=== PATIENT | female | born 1940 | race Hispanic/Latino ===

== ENCOUNTER 2020-05-19 08:10 | Day surgery (SDC) | payer MEDICARE ==
[2020-05-19 09:48] LABS: Basophils % (Auto) 0.6 % (0.0-1.8); Eosinophils # (Auto) 0.1 K/mm3 (0.0-0.4); Eosinophils % (Auto) 1.5 % (0.0-4.3); Hematocrit 39.3 % (30.3-42.9); Hemoglobin 13.5 gm/dl (10.1-14.3); Lymphocytes # (Auto) 1.3 K/mm3 (1.2-5.4); Lymphocytes % (Auto) 30.3 % (13.4-35.0); Mean Corpuscular HGB Conc 35 % (30-34); Mean Corpuscular Volume 96 fl (79-97); Monocytes # (Auto) 0.5 K/mm3 (0.0-0.8); Monocytes % (Auto) 10.9 % (0.0-7.3); Platelet Count 235 K/mm3 (140-440); Red Blood Count 4.11 M/mm3 (3.65-5.03); Red Cell Distribution Width 14.4 % (13.2-15.2)
[2020-05-19 09:59] LABS: INR 0.92 (0.87-1.13)
[2020-05-19] MEDS ORDERED: SODIUM CHLORIDE 0.9% 500 ML 500 ML IV SCH (10:00)
[2020-05-19 10:01] LABS: Blood Urea Nitrogen 13 mg/dL (7-17); Calcium 9.8 mg/dL (8.4-10.2); Hemolysis Index 17
[2020-05-19 10:05] LABS: BUN/Creatinine Ratio 19
[2020-05-19] MEDS ORDERED: fentaNYL 100 MCG/2 ML INJ ONE ×2 (10:19→11:13)
[2020-05-19] MEDS ORDERED: HEPARIN/NS 5000 UNIT/500ML 1,000 ML IR ONE (10:19)
[2020-05-19] MEDS: MIDAZOLAM 2 MG/2 ML INJ ONE ×2 (11:06→13:07)
[2020-05-19] MEDS: LIDOCAINE (2%) 20 MG/1 ML VIAL 20 ML MDV INFILTRATI ONE ×2 (13:27→13:36)
[2020-05-19] MEDS: VERAPAMIL 5 MG/2 ML INJ ONE ×2 (13:28→13:37)
[2020-05-19] MEDS: HEPARIN 10,000 UNITS/10 ML VIAL ONE ×2 (13:28→13:37)
[2020-05-19] MEDS: NITROGLYCERIN SYRINGE 3 ML ONE ×2 (13:29→13:37)
[2020-05-19] MEDS ORDERED: MIDAZOLAM 2 MG/2 ML INJ ONE (13:39)
[2020-05-19] MEDS ORDERED: SODIUM CHLORIDE 0.9% 1000 ML 1,000 ML IV SCH (14:00)
--- NOTE | 2020-05-19 14:00 | Discharge Summary ---
Short Stay Discharge Plan Activity: advance as tolerated Weight Bearing Status: Full Weight Bearing Diet: low fat, low cholesterol, low salt Wound: keep clean and dry Special Instructions: no heavy lifting (3 days) Follow up with: TATA HIGGINBOTHAM MD [Primary Care Provider] - 7 Days MACY HANEY MD [Staff Physician] - 7 Days
[2020-05-19] MEDS ORDERED: traMADol 50 MG TAB PO PRN (14:30)
[2020-05-19] MEDS ORDERED: HYDROcodone/ACETAMINOPHEN 5-325 MG TAB PO PRN (14:30)
--- NOTE | 2020-05-19 14:39 | Cardiac Catherization Report ---
CARDIAC CATHETERIZATION REPORT REASON FOR PROCEDURE: Chest pain and abnormal thallium stress test. PROCEDURE: The patient was prepped and draped in a sterile fashion after informed consent. The right radial cath site was prepped and draped after a negative Andrei's test. The right radial artery was entered using Seldinger technique followed by placement of a 6-Maltese hydrophilic sheath. Routine radial cocktail was administered via the sheath. Selective left and right coronary angiography was performed using #3.5 left Nicolas, and a #4 right Nicolas. The right Nicolas was used for left ventricular angiography. The catheters were then removed, sheath removed, and hemostasis achieved using a TR band. The patient was returned to the postprocedure unit in stable condition. FINDINGS: HEMODYNAMICS: Left ventricular end-diastolic pressure was 25, following coronary angiography. Ascending aortic pressure 170/74. There was no significant pressure gradient on pullback across the aortic valve. CORONARY ANGIOGRAPHY: The left main coronary artery was free of significant disease. A stent was visible in the proximal left anterior descending artery. The stented segment was patent, but contained diffuse, in-stent restenosis, with up to 30-40% luminal narrowing. Following the stented segment, a medium to large mid diagonal branch of the LAD contained an ostial, 50-60% stenosis. Otherwise, the rest of the LAD and diagonal branches contained mild irregularities. A large ramus intermedius artery contained mild luminal irregularities. The circumflex artery and its obtuse marginal branches contained mild luminal irregularities. The right coronary artery was dominant and also contained mild luminal irregularities. Left ventricular systolic function was at lower limits of normal with estimated ejection fraction of 50%. CONCLUSION: 1. Mild diffuse in-stent restenosis of the proximal LAD stent. 2. Moderate severity ostial stenosis of the mid diagonal branch of the LAD. 3. Otherwise, the rest of the coronary segments appear free of significant atherosclerosis. 4. Left ventricular systolic function at the lower limits of normal, ejection fraction 50%. RECOMMENDATION: Risk factor modification and medical therapy. JOB# [id number] CA/NTS
[2020-05-19 16:10] VITALS: BP 123/61
== END 2020-05-19 17:10 | disposition home or self-care (01) ==
LOC: CATHLABREC 08:10
PROVIDERS: ATTEND Internal Medicine Cardiovascular Disease
DX: R07.89 Other chest pain (principal); R93.49 Abnormal radiologic findings on diagnostic imaging of other urinary organs; T82.855A Stenosis of coronary artery stent, initial encounter; I25.10 Atherosclerotic heart disease of native coronary artery without angina pectoris; F17.210 Nicotine dependence, cigarettes, uncomplicated; M19.90 Unspecified osteoarthritis, unspecified site; J44.9 Chronic obstructive pulmonary disease, unspecified; F32.9 Major depressive disorder, single episode, unspecified; I10 Essential (primary) hypertension; E78.5 Hyperlipidemia, unspecified; E66.9 Obesity, unspecified; K21.9 Gastro-esophageal reflux disease without esophagitis; E03.9 Hypothyroidism, unspecified; Z88.0 Allergy status to penicillin; Z88.5 Allergy status to narcotic agent; Z79.899 Other long term (current) drug therapy; Z79.82 Long term (current) use of aspirin; Z72.89 Other problems related to lifestyle; Z98.49 Cataract extraction status, unspecified eye; Z68.34 Body mass index [BMI] 34.0-34.9, adult; Z98.890 Other specified postprocedural states; Z96.653 Presence of artificial knee joint, bilateral; Y83.8 Other surgical procedures as the cause of abnormal reaction of the patient, or of later complication, without mention of misadventure at the time of the procedure; Y92.89 Other specified places as the place of occurrence of the external cause
CPT/HCPCS: 36415; 80048; 85025; 85610; 93005; 93458; 99156; 99157; C1894; J1644; J2250; J3010; J7040; Q9967

== ENCOUNTER 2020-10-20 11:23 | Observation (INO) | payer MEDICARE ==
--- NOTE | 2020-10-20 11:44 | Event Note ---
ED Screening Note ED Screening Note: substernal CP that began 4 days ago while in her sleep she states it radiated to her bilateral jaws she states the sharp pain lasted 20 minutes she states she continues to have soreness of the chest she denies any diaphoresis, n/v she states she does have some SOB she also has dizziness PMHx IL and arthritis allergy: codeine, penicillin This initial assessment/diagnostic orders/clinical plan/treatment(s) is/are subject to change based on patients health status, clinical progression and re-assessment by fellow clinical providers in the ED. Further treatment and workup at subsequent clinical providers discretion. Patient/guardian urged not to elope from the ED as their condition may be serious if not clinically assessed and managed. Initial orders include: CP protocol
--- NOTE | 2020-10-20 12:36 | XRay Report ---
CHEST 2 VIEWS INDICATION / CLINICAL INFORMATION: Chest Pain. COMPARISON: None available. FINDINGS: SUPPORT DEVICES: None. HEART / MEDIASTINUM: No significant abnormality. LUNGS / PLEURA: Mild diffuse interstitial markings which are likely chronic. No convincing evidence o f acute pulmonary parenchymal or pleural abnormality. No pneumothorax. ADDITIONAL FINDINGS: No significant additional findings. IMPRESSION: 1. No convincing evidence of acute cardiopulmonary process. Signer Name: Yoni Sheehan MD Signed: 10/20/2020 12:17 PM Workstation Name: [id number]
[2020-10-20 12:47] LABS: Basophils % (Auto) 0.8 % (0.0-1.8); Eosinophils % (Auto) 1.3 % (0.0-4.3); Hematocrit 39.1 % (30.3-42.9); Hemoglobin 13.1 gm/dl (10.1-14.3); Lymphocytes # (Auto) 0.8 K/mm3 (1.2-5.4); Lymphocytes % (Auto) 21.5 % (13.4-35.0); Mean Corpuscular HGB Conc 33 % (30-34); Mean Corpuscular Volume 94 fl (79-97); Monocytes # (Auto) 0.4 K/mm3 (0.0-0.8); Monocytes % (Auto) 9.7 % (0.0-7.3); Platelet Count 278 K/mm3 (140-440); Red Blood Count 4.14 M/mm3 (3.65-5.03); Red Cell Distribution Width 16.8 % (13.2-15.2)
[2020-10-20 12:56] LABS: INR 0.96 (0.87-1.13)
[2020-10-20 12:57] LABS: Partial Thromboplastin Time 26.1 Sec. (24.2-36.6)
[2020-10-20 13:08] LABS: Albumin 3.7 g/dL (3.9-5); Blood Urea Nitrogen 11 mg/dL (7-17); Calcium 9.7 mg/dL (8.4-10.2); Hemolysis Index 7
[2020-10-20 13:14] LABS: Alanine Aminotransferase < 5 units/L (7-56); BUN/Creatinine Ratio 16
[2020-10-20 13:35] LABS: Chol/HDL Ratio 4.45 %; HDL Cholesterol 66 mg/dL (40-59); LDL Cholesterol,Direct 214 mg/dL (50-130)
[2020-10-20] MEDS ORDERED: ASPIRIN 81 MG TAB CHEW PO ONE ×2 (13:54)
[2020-10-20] MEDS ORDERED: NITROGLYCERIN 0.4 MG TAB SUBL SL PRN (13:54)
--- NOTE | 2020-10-20 13:55 | Emergency Department Report ---
ED Chest Pain HPI - General Chief Complaint: Chest Pain Stated Complaint: CHEST PAIN PUI?: No Time Seen by Provider: 10/20/20 11:38 Source: patient, RN notes reviewed, old records reviewed Mode of arrival: Ambulatory Limitations: No Limitations - History of Present Illness Initial Comments: The patient was evaluated in the emergency department for symptoms described in the history of present illness. He/she was evaluated in the context of the global COVID-19 pandemic, which necessitated consideration that the patient might be at risk for infection with the virus that causes COVID-19. Institutional protocols and algorithms that pertain to the evaluation of patients at risk for COVID-19 are in a state of rapid change based on information released by regulatory bodies including the CDC and federal and state organizations. These policies and algorithms were followed during the patient's care in the emergency department. Please note that these policies, procedures and recommendations changed on a rapid basis. Primary CARE doctor: Dr Leoncio Walsh Cardiology: Dr Amador/ [facility] Past medical history: Ischemic heart disease, stent. Patient had cardiac catheterization at this hospital May 2020, cardiac catheterization found stents to be visible in proximal LAD, with in-stent restenosis, up to 30 to 40% luminal narrowing. Also, has a medium to large mid diagonal branch of the LAD which contained an ostial 50 to 60% stenosis. Otherwise, remainder of LAD and diagonal branches contains mild luminal irregularities. Ejection fraction 50%. Additional past medical history: Hypertension, hypothyroidism This is a pleasant 79-year-old female. She is not known to myself previously. She presents to the ER with a complaint of mostly resolved chest pressure and pain. Her symptoms started this past Monday. It is currently Monday. She describes nontraumatic central and right-sided chest discomfort, which radiated to her right jaw and right shoulder. She still has pressure, but feels improved. She denies additional injuries or complaints at this time. She denies loss of taste and smell. She denies DVT and pulmonary embolism risk factors. She denies hematemesis and bright red blood per rectum. She endorses intermittent compliance with her aspirin therapy. To the best of her knowledge, she does not take Plavix. Complaint: chest pain -: Sudden, days(s) Onset: during rest Pain Location: substernal, right chest Pain Radiation: RUE, neck Severity: moderate Quality: aching Consistency: now resolved Improves With: nothing Worsens With: nothing re: nausea, dyspnea Aspirin use within the Past 7 Days: (1) Yes - Related Data On Oral Contraceptives: No Home Medications Medication Instructions Recorded Confirmed Last Taken Aspirin EC [Halfprin EC] 162 mg PO QDAY 05/19/20 05/19/20 05/19/20 Benazepril HCl [Lotensin] 20 mg PO DAILY 05/19/20 05/19/20 05/19/20 Duloxetine HCl [Drizalma Sprinkle] 60 mg PO DAILY 05/19/20 05/19/20 05/19/20 Famotidine [Pepcid] 20 mg PO BID 05/19/20 05/19/20 05/19/20 ISOSORBIDE MONOnitrate [Imdur ER] 30 mg PO DAILY 05/19/20 05/19/20 05/19/20 Levothyroxine [Synthroid] 125 mcg PO QAM 05/19/20 05/19/20 05/19/20 Metoprolol [Lopressor TAB] 25 mg PO BID 05/19/20 05/19/20 05/19/20 Rosuvastatin Calcium [Crestor] 10 mg PO DAILY 05/19/20 05/19/20 05/19/20 Allergies Allergy/AdvReac Type Severity Reaction Status Date / Time codeine Allergy Vomiting Verified 05/19/20 09:20 Penicillins Allergy Anaphylaxis Verified 05/19/20 09:20 Heart Score - HEART Score History: Moderately suspicious EKG: Non-specific Age: > 65 Risk factors: > 3 risk factors or hx of atherosclerotic disease Troponin: 1-3x normal limit HEART Score: 7 - EKG Read Time Time EKG Completed: 11:35 EKG Read Time: 11:40 - Critical Actions Critical Actions: >7 pts:50-65% risk of adverse cardiac event. Early invasive measures ED Review of Systems ROS: Stated complaint: CHEST PAIN Other details as noted in HPI Constitutional: other (Denies loss of taste and smell). denies: fever Eyes: denies: eye discharge ENT: denies: epistaxis Respiratory: denies: cough, wheezing Cardiovascular: chest pain Gastrointestinal: denies: nausea, vomiting, diarrhea, melena, hematochezia Genitourinary: denies: dysuria Musculoskeletal: denies: back pain Neurological: weakness Hematological/Lymphatic: denies: easy bleeding ED Past Medical Hx - Past Medical History Hx Hypertension: Yes Hx Heart Attack/AMI: Yes Hx GERD: Yes Hx Arthritis: Yes Hx COPD: Yes Additional medical history: heart stents - Surgical History Additional Surgical History: GR, paulay, "1/2 of my upper intestines", feet - Social History Smoking Status: Current Every Day Smoker - Medications Home Medications: Home Medications Medication Instructions Recorded Confirmed Last Taken Type Aspirin EC [Halfprin EC] 162 mg PO QDAY 05/19/20 05/19/20 05/19/20 History Benazepril HCl [Lotensin] 20 mg PO DAILY 05/19/20 05/19/20 05/19/20 History Duloxetine HCl [Drizalma Sprinkle] 60 mg PO DAILY 05/19/20 05/19/20 05/19/20 History Famotidine [Pepcid] 20 mg PO BID 05/19/20 05/19/20 05/19/20 History ISOSORBIDE MONOnitrate [Imdur ER] 30 mg PO DAILY 05/19/20 05/19/20 05/19/20 History Levothyroxine [Synthroid] 125 mcg PO QAM 05/19/20 05/19/20 05/19/20 History Metoprolol [Lopressor TAB] 25 mg PO BID 05/19/20 05/19/20 05/19/20 History Rosuvastatin Calcium [Crestor] 10 mg PO DAILY 05/19/20 05/19/20 05/19/20 History ED Physical Exam - General Limitations: No Limitations General appearance: alert, in no apparent distress - Head Head exam: Present: atraumatic, normocephalic - Eye Eye exam: Present: normal appearance, EOMI. Absent: nystagmus - ENT ENT exam: Present: normal exam, normal orophraynx, mucous membranes moist, normal external ear exam - Neck Neck exam: Present: normal inspection, full ROM. Absent: tenderness, meningismus - Respiratory Respiratory exam: Present: normal lung sounds bilaterally. Absent: respiratory distress, wheezes, rales, rhonchi, stridor, decreased breath sounds - Cardiovascular Cardiovascular Exam: Present: regular rate, normal rhythm, normal heart sounds. Absent: bradycardia, tachycardia, irregular rhythm, systolic murmur, diastolic murmur, rubs, gallop - GI/Abdominal GI/Abdominal exam: Present: soft, normal bowel sounds. Absent: distended, tenderness, guarding, rebound, rigid, pulsatile mass - Extremities Exam Extremities exam: Present: normal inspection, full ROM, other (2+ pulses noted in the bilateral upper and lower extremities. There is no palpable cord. negative Homans sign. Muscular compartments are soft. The pelvis is stable.). Absent: pedal edema, calf tenderness - Back Exam Back exam: Present: normal inspection, full ROM. Absent: tenderness, CVA tenderness (R), CVA tenderness (L), paraspinal tenderness, vertebral tenderness - Neurological Exam Neurological exam: Present: alert, other (No facial droop. Tongue midline. Extraocular movements intact bilaterally. Facial sensation intact to light touch in V1, V2, V3 distribution bilaterally. 5 and a 5 strength in 4 extremities. Sensation intact to light touch in 4 extremities.) - Psychiatric Psychiatric exam: Present: normal affect, normal mood - Skin Skin exam: Present: warm, dry, intact, normal color. Absent: rash ED Course Vital Signs 10/20/20 10/20/20 11:27 14:15 Temperature 97.6 F Pulse Rate 79 Respiratory 22 Rate Blood Pressure 143/75 O2 Sat by Pulse 96 Oximetry O2 Sat by Pulse 99 Oximetry [ Digit-Finger] - Consultations Consultation #1: 10/20/20 14:20 As per discussion with cardiology on-call, Shannan Krishnamurthy, in agreement with admission, heparinization, aspirin, Imdur 30 daily, no need for Plavix at this time, and reinitiation of home medications. - Pulse Oximetry Interpretation Digit-Finger Initial Pulse Oximetry Readin O2 Sat by Pulse Oximetry: 99 Actions Taken: none ENMANUEL score - Enamnuel Score Age > 65: (1) Yes Aspirin use within the Past 7 Days: (1) Yes 3 or more CAD Risk Factors: (1) Yes 2 or more Angina events in past 24 hrs: (0) No Known CAD with more than 50% Stenosis: (1) Yes Elevated Cardiac Markers: (1) Yes ST Deviation Greater than 0.5mm: (0) No ENMANUEL Score: 5 ED Medical Decision Making - Lab Data Result diagrams: 10/20/20 12:20 10/20/20 12:20 Vital Signs 10/20/20 11:27 Temperature 97.6 F Pulse Rate 79 Respiratory 22 Rate Blood Pressure 143/75 O2 Sat by Pulse 96 Oximetry Lab Results 10/20/20 10/20/20 10/20/20 Range/Units 12:20 12:20 12:20 WBC 3.9 L (4.5-11.0) K/mm3 RBC 4.14 (3.65-5.03) M/mm3 Hgb 13.1 (10.1-14.3) gm/dl Hct 39.1 (30.3-42.9) % MCV 94 (79-97) fl MCH 32 (28-32) pg MCHC 33 (30-34) % RDW 16.8 H (13.2-15.2) % Plt Count 278 (140-440) K/mm3 Lymph % (Auto) 21.5 (13.4-35.0) % [place] % (Auto) 9.7 H (0.0-7.3) % Eos % (Auto) 1.3 (0.0-4.3) % Baso % (Auto) 0.8 (0.0-1.8) % Lymph # (Auto) 0.8 L (1.2-5.4) K/mm3 [place] # (Auto) 0.4 (0.0-0.8) K/mm3 Eos # (Auto) 0.0 (0.0-0.4) K/mm3 Baso # (Auto) 0.0 (0.0-0.1) K/mm3 Seg Neutrophils % 66.7 (40.0-70.0) % Seg Neutrophils # 2.6 (1.8-7.7) K/mm3 PT 12.7 (12.2-14.9) Sec. INR 0.96 (0.87-1.13) APTT 26.1 (24.2-36.6) Sec. Sodium 139 (137-145) mmol/L Potassium 5.5 H (3.6-5.0) mmol/L Chloride 101.6 (98-107) mmol/L Carbon Dioxide 27 (22-30) mmol/L Anion Gap 16 mmol/L BUN 11 (7-17) mg/dL Creatinine 0.7 (0.6-1.2) mg/dL Estimated GFR > 60 ml/min BUN/Creatinine Ratio 16 % Glucose 112 H (65-100) mg/dL Calcium 9.7 (8.4-10.2) mg/dL Magnesium 2.20 (1.7-2.3) mg/dL Total Bilirubin 0.50 (0.1-1.2) mg/dL AST 19 (5-40) units/L ALT < 5 L (7-56) units/L Alkaline Phosphatase 97 (35-129) units/L Total Creatine Kinase 108 (30-135) units/L Troponin T 0.208 H* (0.00-0.029) ng/mL Total Protein 7.8 (6.3-8.2) g/dL Albumin 3.7 L (3.9-5) g/dL Albumin/Globulin Ratio 0.9 % Triglycerides 126 (2-149) mg/dL Cholesterol 294 H (50-199) mg/dL LDL Cholesterol Direct 214 H (50-130) mg/dL HDL Cholesterol 66 H (40-59) mg/dL Cholesterol/HDL Ratio 4.45 % - EKG Data -: EKG Interpreted by Ut - EKG Data 10/20/20 14:12 EKG today shows a known left bundle branch block, with a left axis deviation. There is a borderline left anterior fascicular block, and there is poor R wave progression. The QTC is prolonged. CT interval within normal limits. This is an abnormal EKG. This is not a STEMI. This appears to be unchanged from prior EKG from May 2020. - Radiology Data Radiology results: pending, report reviewed, image reviewed CHEST 2 VIEWS INDICATION / CLINICAL INFORMATION: Chest Pain. COMPARISON: None available. FINDINGS: SUPPORT DEVICES: None. HEART / MEDIASTINUM: No significant abnormality. LUNGS / PLEURA: Mild diffuse interstitial markings which are likely chronic. No convincing evidence of acute pulmonary parenchymal or pleural abnormality. No pneumothorax. ADDITIONAL FINDINGS: No significant additional findings. IMPRESSION: 1. No convincing evidence of acute cardiopulmonary process. Signer Name: Yoni Sheehan MD Signed: 10/20/2020 11:17 AM Workstation Name: [id number] - Medical Decision Making Differential diagnosis, including but not limited to: GERD, gastritis, hiatal hernia, pneumonia, acute coronary syndrome, stable angina, unstable angina Assessment and plan: 79-year-old female, denies DVT and pulmonary embolism risk factors, who is not currently tachycardic, tachypneic or hypoxic, low risk by Wells criteria for pulmonary embolism, with no pulsatile abdominal mass, unremarkable mediastinum on chest x-ray, equal pulses in upper and lower extremities, unlikely to be acute aortic disease, with known history of ischemic heart disease, in-stent restenosis, elevated risk for major adverse cardiac event as per heart score, with unchanged EKG, and elevated troponin. Suspect type I troponin leak. Patient states she is basically pain-free at this time. She is resting comfortably in her stretcher and in no acute distress. She took 81 mg of aspirin this morning, we will give additional dose of aspirin for total dose of 324 mg today. Heparin drip ordered, as needed nitroglycerin ordered, patient is amenable to admission and hospitalization for presumed NSTEMI. Contacted cardiology on-call, Shannan Krishnamurthy, she has reviewed the patient's chart, is in agreement with heparinization, and nothing by mouth after midnight. She will further reviewed patient's chart, and make further recommendations as to additional antiplatelet agents. Patient admitted to the medical service under the care of Dr. Hough. Have discussed this plan of care with the patient, who verbalized understanding, and was amenable to admission. Critical Care Time: Yes Critical care time in (mins) excluding proc time.: 35 Critical care attestation.: If time is entered above; I have spent that time in minutes in the direct care of this critically ill patient, excluding procedure time. ED Disposition Clinical Impression: CAD (coronary artery disease), Acute chest pain, NSTEMI (non-ST elevated myocardial infarction) Disposition: OP ADMIT IP TO THIS HOSP Is pt being admited?: Yes Does the pt Need Aspirin: No Condition: Good Instructions: Chest Pain (ED)
[2020-10-20] MEDS ORDERED: HEPARIN 10,000 UNITS/10 ML VIAL IV PRN (14:06)
[2020-10-20] MEDS ORDERED: HEPARIN 10,000 UNITS/10 ML VIAL IV ONE (14:06)
[2020-10-20] MEDS ORDERED: ONDANSETRON 4 MG/2 ML INJ IV PRN (14:25)
[2020-10-20] MEDS ORDERED: ACETAMINOPHEN 325 MG TAB PO PRN (14:25)
[2020-10-20] MEDS ORDERED: ALBUTEROL 2.5 MG/3 ML NEBU IH PRN (14:25)
--- NOTE | 2020-10-20 14:25 | History and Physical Report ---
History of Present Illness Chief complaint: My chest hurts History of present illness: 79 YO Female with CAD S/P Stent Placement, Obesity Hypoventilation Syndrome, HTN, Hypothyroidism, Nicotine Dependence, GERD, HLD, [place], OA, COPD presents to ED for evaluation. Patient reports "I have been having pain in my chest". Patient states that she has experienced chest pain over the past 3 days with acutely worsening symptoms over the past 12 hours. Patient states that pain is 7/10, intermittent initially but has become constant, worsened with exertion, relieved with rest, associated with decreased exercise tolerance, dyspnea on exertion as well as dyspnea at rest. Patient transported to [facility] via private vehicle for further care and evaluation of the aforementioned symptoms. The patient was seen and evaluated in the emergency department. All lab and imaging studies reviewed. Patient found to have EKG findings as well as clinical lab findings consistent with non-ST elevation [place], as well as clinical symptoms consistent with diastolic congestive heart failure. Cardiology team consulted in ED. Patient admitted to telemetry and initiated on therapeutic anticoagulation. Patient denies fever, chills, palpitations, productive cough, skin rash, recent ill contacts, or known exposure to COVID-19. Past History Past Medical History: acute [place], arthritis, COPD, GERD, hypertension, hyperlipidemia Past Surgical History: appendectomy, bowel surgery, Other (Foot surgery) Social history: , smoking Family history: diabetes, hypertension Medications and Allergies Allergies Allergy/AdvReac Type Severity Reaction Status Date / Time codeine Allergy Vomiting Verified 05/19/20 09:20 Penicillins Allergy Anaphylaxis Verified 05/19/20 09:20 Home Medications Medication Instructions Recorded Confirmed Last Taken Type Aspirin EC [Halfprin EC] 162 mg PO QDAY 05/19/20 10/20/20 05/19/20 History Benazepril HCl [Lotensin] 20 mg PO DAILY 05/19/20 10/20/20 05/19/20 History Duloxetine HCl [Drizalma Sprinkle] 60 mg PO DAILY 05/19/20 10/20/20 05/19/20 History Famotidine [Pepcid] 20 mg PO BID 05/19/20 10/20/20 05/19/20 History ISOSORBIDE MONOnitrate [Imdur ER] 30 mg PO DAILY 05/19/20 10/20/20 05/19/20 Hi story Levothyroxine [Synthroid] 125 mcg PO QAM 05/19/20 10/20/20 05/19/20 History Metoprolol [Lopressor TAB] 25 mg PO BID 05/19/20 10/20/20 05/19/20 History Rosuvastatin Calcium [Crestor] 10 mg PO DAILY 05/19/20 10/20/20 05/19/20 History Active Meds: Active Medications Heparin Sodium (Porcine) (Heparin 10,000 Units/10 Ml Vial) 3,400 unit 40 unit/kg (3400 unit) IV Q6H PRN PRN Reason: Anti-Xa Assay < 0.1 units/ml Heparin Sodium/Sodium Chloride (Heparin/ 0.45% Nacl-25,000 Unit/500 Ml) 25,000 unit in 500 mls @ 20 mls/hr IV TITRATE AIDAN; Protocol Isosorbide Mononitrate (Isosorbide Mononitrate Er 30 Mg Tab) 30 mg PO NOW STA Stop: 10/20/20 14:19 Nitroglycerin (Nitroglycerin 0.4 Mg Tab Subl) 0.4 mg SL .Q5MIN PRN PRN Reason: Chest Pain Review of Systems Constitutional: no weight loss, no weight gain, no fever, no chills Ears, nose, mouth and throat: no ear pain, no ear discharge, no tinnitis, no decreased hearing, no nose pain, no nasal congestion, no nasal discharge Breasts: no change in shape, no swelling, no mass Cardiovascular: chest pain, decreased exercise tolerance, no rapid/irregular heart beat, no edema, no lightheadedness Respiratory: no cough, no cough with sputum, no excessive sputum, no hemoptysis Gastrointestinal: no nausea, no vomiting, no diarrhea, no constipation, no change in bowel habits Genitourinary Female: no pelvic pain, no flank pain, no dysuria, no urinary frequency, no urgency Rectal: no pain, no incontinence, no bleeding Musculoskeletal: no neck stiffness, no neck pain, no arm numbness/tingling, no low back pain, no shooting leg pain Integumentary: no rash, no pruritis, no sores, no jaundice, no boils Neurological: no transient paralysis, no paralysis, no parathesias, no numbness, no seizures, no syncope Psychiatric: no anxiety, no memory loss, no change in sleep habits, no sleep disturbances, no insomnia, no hypersomnia, no change in libido Endocrine: no cold intolerance, no heat intolerance, no polyphagia, no polydipsia, no polyuria, no excessive sweating Hematologic/Lymphatic: no easy bruising, no easy bleeding Allergic/Immunologic: no urticaria, no wheezing Exam - Constitutional Vitals: Temp Pulse Resp BP Pulse Ox 97.6 F 79 22 143/75 99 10/20/20 11:27 10/20/20 11:27 10/20/20 11:10/20/20 11:10/20/20 14:21 General appearance: Present: mild distress, obese - EENT Eyes: Present: PERRL ENT: hearing intact, clear oral mucosa - Neck Neck: Present: supple, normal ROM - Respiratory Respiratory effort: normal Respiratory: bilateral: CTA - Cardiovascular Heart Sounds: Present: S1 & S2. Absent: rub, click - Extremities Extremities: pulses symmetrical, No edema Peripheral Pulses: within normal limits - Abdominal General gastrointestinal: Present: soft, non-tender, non-distended, normal bowel sounds Female genitourinary: Present: normal - Integumentary Integumentary: Present: clear, warm, dry - Musculoskeletal Musculoskeletal: gait normal, strength equal bilaterally - Psychiatric Psychiatric: appropriate mood/affect, intact judgment & insight - Neurologic Neurologic: CNII-XII intact, moves all extremities HEART Score - HEART Score EKG: Non-specific Age: > 65 Risk factors: > 3 risk factors or hx of atherosclerotic disease Troponin: Troponin T 0.208 ng/mL (0.00-0.029) H* 10/20/20 12:20 Troponin: 1-3x normal limit - Critical Actions Critical Actions: >7 pts:50-65% risk of adverse cardiac event. Early invasive measures Results - Labs CBC & Chem 7: 10/20/20 12:20 10/20/20 12:20 Labs: Abnormal lab results 10/20/20 10/20/20 Range/Units 12:20 12:20 WBC 3.9 L (4.5-11.0) K/mm3 RDW 16.8 H (13.2-15.2) % [place] % (Auto) 9.7 H (0.0-7.3) % Lymph # (Auto) 0.8 L (1.2-5.4) K/mm3 Potassium 5.5 H (3.6-5.0) mmol/L Glucose 112 H (65-100) mg/dL ALT < 5 L (7-56) units/L Troponin T 0.208 H* (0.00-0.029) ng/mL Albumin 3.7 L (3.9-5) g/dL Cholesterol 294 H (50-199) mg/dL LDL Cholesterol Direct 214 H (50-130) mg/dL HDL Cholesterol 66 H (40-59) mg/dL Assessment and Plan - Patient Problems (1) NSTEMI (non-ST elevated myocardial infarction) Current Visit: Yes Status: Acute Plan to address problem: Serial cardiac enzymes, EKG, telemetry monitoring, therapeutic anticoagulation, supplemental oxygen, morphine, nitro, aspirin, further care and evaluation as per cardiology team. (2) Angina at rest Current Visit: Yes Status: Acute Plan to address problem: Serial cardiac enzymes, EKG, telemetry monitoring, further care and evaluation as per cardiology team. (3) Diastolic CHF Current Visit: Yes Status: Acute Qualifiers: Heart failure chronicity: acute Qualified Code(s): I50.31 - Acute diastolic (congestive) heart failure Plan to address problem: Cardiology team consulted in ED, echocardiogram, further testing as per cardiology team. Strict I's/O, monitor urine output every shift, daily weight, afterload reduction, (4) GERD (gastroesophageal reflux disease) Current Visit: Yes Status: Acute Qualifiers: Esophagitis presence: without esophagitis Qualified Code(s): K21.9 - Gastro-esophageal reflux disease without esophagitis Plan to address problem: PPI therapy, supportive care. (5) Obesity (BMI 30.0-34.9) Current Visit: Yes Status: Acute Plan to address problem: Balanced diet, increase physical activity at discharge, outpatient pulmonary follow-up for sleep study. (6) CAD (coronary artery disease) Current Visit: Yes Status: Acute Qualifiers: Associated angina: with stable angina Plan to address problem: Risk factor reduction therapy, statin therapy, antiplatelet therapy. (7) DVT prophylaxis Current Visit: Yes Status: Acute Plan to address problem: SCD to bilateral lower extremities while in bed, continue therapeutic anti coagulation (8) Advance care planning Current Visit: Yes Status: Acute Plan to address problem: Disease education conducted, care plan discussed, prognosis discussed, diagnoses discussed, patient is full code, patient knowledges understanding and agreement with care plan, +30 minutes.
[2020-10-20] MEDS: HEPARIN/ 0.45% NACL DRIP 25,000 UNIT/500 ML BAG IV SCH ×2 (14:58→23:33)
[2020-10-20] MEDS ORDERED: ONDANSETRON 4 MG/2 ML INJ ONE (15:02)
[2020-10-20] MEDS: FAMOTIDINE 20 MG TAB PO SCH (22:23)
[2020-10-20] MEDS ORDERED: TEMAZEPAM 15 MG CAP PO ONE (22:23)
[2020-10-20] MEDS: METOPROLOL TARTRATE 25 MG TAB PO SCH (22:26)
[2020-10-21] MEDS ORDERED: LEVOTHYROXINE 125 MCG TAB PO SCH (06:00)
[2020-10-21 06:58] LABS: Basophils % (Auto) 0.7 % (0.0-1.8); Eosinophils # (Auto) 0.1 K/mm3 (0.0-0.4); Eosinophils % (Auto) 1.7 % (0.0-4.3); Hematocrit 34.6 % (30.3-42.9); Hemoglobin 11.4 gm/dl (10.1-14.3); Lymphocytes # (Auto) 1.5 K/mm3 (1.2-5.4); Lymphocytes % (Auto) 32.9 % (13.4-35.0); Mean Corpuscular HGB Conc 33 % (30-34); Mean Corpuscular Volume 94 fl (79-97); Monocytes # (Auto) 0.4 K/mm3 (0.0-0.8); Monocytes % (Auto) 9.3 % (0.0-7.3); Platelet Count 270 K/mm3 (140-440); Red Blood Count 3.67 M/mm3 (3.65-5.03); Red Cell Distribution Width 16.6 % (13.2-15.2)
[2020-10-21 07:25] LABS: Alanine Aminotransferase 6 units/L (7-56); Albumin 3.5 g/dL (3.9-5); BUN/Creatinine Ratio 14; Blood Urea Nitrogen 11 mg/dL (7-17); Calcium 9.2 mg/dL (8.4-10.2); Hemolysis Index 5
[2020-10-21] MEDS ORDERED: REGADENOSON 0.4 MG/5 ML INJ IV ONE (08:37)
[2020-10-21] MEDS ORDERED: DULoxetine 30 MG CAP PO SCH (10:00)
[2020-10-21] MEDS ORDERED: LISINOPRIL 20 MG TAB PO SCH (10:00)
[2020-10-21] MEDS ORDERED: BENAZEPRIL HCL 20 MG PO SCH (10:00)
[2020-10-21] MEDS ORDERED: NON-FORMULARY EACH (Duloxetine Hcl [Drizalma Sprinkle] 60 MG Cap.Dr.Spr) PO SCH (10:00)
[2020-10-21] MEDS ORDERED: NON-FORMULARY EACH (Rosuvastatin Calcium [Crestor] 10 MG Tablet) PO SCH (10:00)
[2020-10-21] MEDS ORDERED: ASPIRIN EC 81 MG TAB PO SCH (10:00)
[2020-10-21] MEDS: FAMOTIDINE 20 MG TAB PO SCH (10:50)
[2020-10-21] MEDS: METOPROLOL TARTRATE 25 MG TAB PO SCH (10:50)
--- NOTE | 2020-10-21 11:54 | Progress Note ---
Assessment and Plan Assessment and plan: 79 YO Female with CAD S/P Stent Placement, Obesity Hypoventilation Syndrome, HTN, Hypothyroidism, Nicotine Dependence, GERD, HLD, [place], OA, COPD presents to ED for evaluation. Patient reports "I have been having pain in my chest". Patient states that she has experienced chest pain over the past 3 days with acutely worsening symptoms over the past 12 hours. Patient states that pain is 7/10, intermittent initially but has become constant, worsened with exertion, relieved with rest, associated with decreased exercise tolerance, dyspnea on exertion as well as dyspnea at rest. Patient transported to [facility] via private vehicle for further care and evaluation of the aforementioned symptoms. The patient was seen and evaluated in the emergency department. All lab and imaging studies reviewed. Patient found to have EKG findings as well as clinical lab findings consistent with non-ST elevation [place], as well as clinical symptoms consistent with diastolic congestive heart failure. Cardiology team consulted in ED. Patient admitted to telemetry and initiated on therapeutic anticoagulation. Patient denies fever, chills, palpitations, productive cough, skin rash, recent ill contacts, or known exposure to COVID-19. (1) NSTEMI (non-ST elevated myocardial infarction) Current Visit: Yes Status: Acute Plan to address problem: Serial cardiac enzymes, EKG, telemetry monitoring, therapeutic anticoagulation, supplemental oxygen, morphine, nitro, aspirin, further care and evaluation as per cardiology team. (2) Angina at rest Current Visit: Yes Status: Acute Plan to address problem: Serial cardiac enzymes, EKG, telemetry monitoring, further care and evaluation as per cardiology team. (3) Diastolic CHF Current Visit: Yes Status: Acute Qualifiers: Heart failure chronicity: acute Qualified Code(s): I50.31 - Acute diastolic (congestive) heart failure Plan to address problem: Cardiology team consulted in ED, echocardiogram, further testing as per cardiol ogy team. Strict I's/O, monitor urine output every shift, daily weight, afterload reduction, (4) GERD (gastroesophageal reflux disease) Current Visit: Yes Status: Acute Qualifiers: Esophagitis presence: without esophagitis Qualified Code(s): K21.9 - Gastro-esophageal reflux disease without esophagitis Plan to address problem: PPI therapy, supportive care. (5) Obesity (BMI 30.0-34.9) Current Visit: Yes Status: Acute Plan to address problem: Balanced diet, increase physical activity at discharge, outpatient pulmonary follow-up for sleep study. (6) CAD (coronary artery disease) Current Visit: Yes Status: Acute Qualifiers: Associated angina: with stable angina Plan to address problem: Risk factor reduction therapy, statin therapy, antiplatelet therapy. (7) DVT prophylaxis Current Visit: Yes Status: Acute Plan to address problem: SCD to bilateral lower extremities while in bed, continue therapeutic anticoagulation (8) Advance care planning Current Visit: Yes Status: Acute Plan to address problem: Disease education conducted, care plan discussed, prognosis discussed, diagnoses discussed, patient is full code, patient knowledges understanding and agreement with care plan, +30 minutes. Hospitalist Physical - Constitutional Vitals: Temp Pulse Resp BP Pulse Ox 98.4 F 73 18 170/86 92 10/21/20 04:15 10/21/20 10:50 10/21/20 07:57 10/21/20 10:50 10/21/20 07:57 General appearance: Present: mild distress, obese HEART Score - HEART Score EKG: Non-specific Age: > 65 Risk factors: > 3 risk factors or hx of atherosclerotic disease Troponin: Troponin T 0.202 ng/mL (0.00-0.029) H* 10/20/20 16:33 Troponin: 1-3x normal limit - Critical Actions Critical Actions: >7 pts:50-65% risk of adverse cardiac event. Early invasive measures Results - Labs CBC & Chem 7: 10/21/20 04:45 10/21/20 04:45 Labs: Laboratory Last Values WBC 4.6 K/mm3 (4.5-11.0) 10/21/20 04:45 RBC 3.67 M/mm3 (3.65-5.03) 10/21/20 04:45 Hgb 11.4 gm/dl (10.1-14.3) 10/21/20 04:45 Hct 34.6 % (30.3-42.9) 10/21/20 04:45 MCV 94 fl (79-97) 10/21/20 04:45 MCH 31 pg (28-32) 10/21/20 04:45 MCHC 33 % (30-34) 10/21/20 04:45 RDW 16.6 % (13.2-15.2) H 10/21/20 04:45 Plt Count 270 K/mm3 (140-440) 10/21/20 04:45 Lymph % (Auto) 32.9 % (13.4-35.0) 10/21/20 04:45 [place] % (Auto) 9.3 % (0.0-7.3) H 10/21/20 04:45 Eos % (Auto) 1.7 % (0.0-4.3) 10/21/20 04:45 Baso % (Auto) 0.7 % (0.0-1.8) 10/21/20 04:45 Lymph # (Auto) 1.5 K/mm3 (1.2-5.4) 10/21/20 04:45 [place] # (Auto) 0.4 K/mm3 (0.0-0.8) 10/21/20 04:45 Eos # (Auto) 0.1 K/mm3 (0.0-0.4) 10/21/20 04:45 Baso # (Auto) 0.0 K/mm3 (0.0-0.1) 10/21/20 04:45 Seg Neutrophils % 55.4 % (40.0-70.0) 10/21/20 04:45 Seg Neutrophils # 2.5 K/mm3 (1.8-7.7) 10/21/20 04:45 PT 12.7 Sec. (12.2-14.9) 10/20/20 12:20 INR 0.96 (0.87-1.13) 10/20/20 12:20 APTT 26.1 Sec. (24.2-36.6) 10/20/20 12:20 Heparin Anti-Xa Level 0.31 U.I./ml (0.3-0.7) 10/20/20 20:52 Sodium 141 mmol/L (137-145) 10/21/20 04:45 Potassium 4.2 mmol/L (3.6-5.0) D 10/21/20 04:45 Chloride 103.3 mmol/L (98-107) 10/21/20 04:45 Carbon Dioxide 28 mmol/L (22-30) 10/21/20 04:45 Anion Gap 14 mmol/L 10/21/20 04:45 BUN 11 mg/dL (7-17) 10/21/20 04:45 Creatinine 0.8 mg/dL (0.6-1.2) 10/21/20 04:45 Estimated GFR > 60 ml/min 10/21/20 04:45 BUN/Creatinine Ratio 14 % 10/21/20 04:45 Glucose 81 mg/dL (65-100) 10/21/20 04:45 Calcium 9.2 mg/dL (8.4-10.2) 10/21/20 04:45 Magnesium 2.20 mg/dL (1.7-2.3) 10/20/20 12:20 Total Bilirubin 0.50 mg/dL (0.1-1.2) 10/21/20 04:45 AST 20 units/L (5-40) 10/21/20 04:45 ALT 6 units/L (7-56) L 10/21/20 04:45 Alkaline Phosphatase 80 units/L (35-129) 10/21/20 04:45 Total Creatine Kinase 108 units/L (30-135) 10/20/20 12:20 Troponin T 0.202 ng/mL (0.00-0.029) H* 10/20/20 16:33 Total Protein 7.0 g/dL (6.3-8.2) 10/21/20 04:45 Albumin 3.5 g/dL (3.9-5) L 10/21/20 04:45 Albumin/Globulin Ratio 1.0 % 10/21/20 04:45 Triglycerides 126 mg/dL (2-149) 10/20/20 12:20 Cholesterol 294 mg/dL (50-199) H 10/20/20 12:20 LDL Cholesterol Direct 214 mg/dL (50-130) H 10/20/20 12:20 HDL Cholesterol 66 mg/dL (40-59) H 10/20/20 12:20 Cholesterol/HDL Ratio 4.45 % 10/20/20 12:20 [place]/IV: Voiding Method Toilet Active Medications - Current Medications Current Medications: Generic Name Dose Route Start Last Admin Trade Name Freq PRN Reason Stop Dose Admin Acetaminophen 650 mg 10/20/20 14:25 Acetaminophen 325 Mg Tab PO Q4H PRN Pain MILD(1-3)/Fever >100.5/WALLACE Albuterol 2.5 mg 10/20/20 14:25 Albuterol 2.5 Mg/3 Ml Nebu IH Q4HRT PRN Shortness Of Breath Aspirin 162 mg 10/21/20 10:00 10/21/20 10:49 Aspirin Ec 81 Mg Tab PO 162 mg QDAY AIDAN Administration Atorvastatin Calcium 20 mg 10/20/20 22:00 10/20/20 22:25 Atorvastatin 20 Mg Tab PO 20 mg QHS AIDAN Administration Duloxetine HCl 60 mg 10/21/20 10:00 10/21/20 10:50 Duloxetine 30 Mg Cap PO 60 mg QDAY AIDAN Administration Famotidine 20 mg 10/20/20 22:00 10/21/20 10:50 Famotidine 20 Mg Tab PO 20 mg BID AIDAN Administration Heparin Sodium (Porcine) 3,400 unit 10/20/20 14:06 Heparin 10,000 Units/10 Ml Vial 40 unit/kg (3400 unit) IV Q6H PRN Anti-Xa Assay < 0.1 units/ml Heparin Sodium/Sodium Chloride 25,000 unit in 500 mls @ 20 mls/hr 10/20/20 15:00 10/20/20 23:33 Heparin/ 0.45% Nacl-25,000 Unit/500 Ml IV 1,000 units/hr TITRATE AIDAN 20 mls/hr Administration Protocol 1,000 UNITS/HR Isosorbide Mononitrate 30 mg 10/21/20 10:00 10/21/20 10:50 Isosorbide Mononitrate Er 30 Mg Tab PO 30 mg DAILY AIDAN Administration Levothyroxine Sodium 125 mcg 10/21/20 06:00 10/21/20 06:43 Levothyroxine 125 Mcg Tab PO 125 mcg 0600 AIDAN Administration Lisinopril 20 mg 10/21/20 10:00 10/21/20 10:50 Lisinopril 20 Mg Tab PO 20 mg QDAY AIDAN Administration Metoprolol Tartrate 25 mg 10/20/20 22:00 10/21/20 10:50 Metoprolol Tartrate 25 Mg Tab PO 25 mg BID AIDAN Administration Nitroglycerin 0.4 mg 10/20/20 13:54 Nitroglycerin 0.4 Mg Tab Subl SL .Q5MIN PRN Chest Pain Ondansetron HCl 4 mg 10/20/20 14:25 10/20/20 15:03 Ondansetron 4 Mg/2 Ml Inj IV 4 mg Q8H PRN Administration Nausea And Vomiting Sodium Chloride 10 ml 10/20/20 22:00 10/21/20 10:51 Sodium Chloride 0.9% 10 Ml Flush Syringe IV 10 ml BID AIDAN Administration Sodium Chloride 10 ml 10/20/20 14:25 Sodium Chloride 0.9% 10 Ml Flush Syringe IV PRN PRN LINE FLUSH
--- NOTE | 2020-10-21 12:54 | Consultation ---
History of Present Illness Consult date: 10/21/20 Consult reason: chest pain History of present illness: The patient is a 79-year-old woman with COPD, chronic tobacco abuse, and mauricio nary artery disease. Just 4 months ago, a cardiac catheterization at this hospital for further assessment of her coronary disease found patent mid LAD stent with only mild restenosis, and moderate stenosis at the ostium of a small caliber mid diagonal branch of the LAD. The coronary vessels were otherwise unremarkable, left ventricular ejection fraction was 50% and she was recommended for conservative medical management. She presents to the emergency room currently with chest pain which she describes as somewhat positional, located the left side of the chest. Notably, the pain was not exertional, she states that she has been ambulatory in the last few days including walking up and down stairs, has had no exercise limitations or chest pain with exercise. EKG in the hospital here is in sinus rhythm with a chronic left bundle branch block. Laboratory values done show a mildly elevated troponin of 0.2, unchanged on 2 serial measurements. Patient was ordered for a Lexiscan thallium stress test today, the results are pending. Past History Past Medical History: arthritis, CAD, COPD, GERD, hypertension, hyperlipidemia Past Surgical History: appendectomy, PTCA, bowel surgery, Other (Foot surgery) Social history: , smoking Family history: diabetes, hypertension Medications and Allergies Allergies Allergy/AdvReac Type Severity Reaction Status Date / Time codeine Allergy Vomiting Verified 05/19/20 09:20 Penicillins Allergy Anaphylaxis Verified 05/19/20 09:20 Home Medications Medication Instructions Recorded Confirmed Last Taken Type Aspirin EC [Halfprin EC] 162 mg PO QDAY 05/19/20 10/20/20 05/19/20 History Benazepril HCl [Lotensin] 20 mg PO DAILY 05/19/20 10/20/20 05/19/20 History Duloxetine HCl [Drizalma Sprinkle] 60 mg PO DAILY 05/19/20 10/20/20 05/19/20 History Famotidine [Pepcid] 20 mg PO BID 05/19/20 10/20/20 05/19/20 History ISOSORBIDE MONOnitrate [Imdur ER] 30 mg PO DAILY 05/19/20 10/20/20 05/19/20 History Levothyroxine [Synthroid] 125 mcg PO QAM 05/19/20 10/20/20 05/19/20 History Metoprolol [Lopressor TAB] 25 mg PO BID 05/19/20 10/20/20 05/19/20 History Rosuvastatin Calcium [Crestor] 10 mg PO DAILY 05/19/20 10/20/20 05/19/20 History Active Meds: Active Medications Acetaminophen (Acetaminophen 325 Mg Tab) 650 mg PO Q4H PRN PRN Reason: Pain MILD(1-3)/Fever >100.5/WALLACE Albuterol (Albuterol 2.5 Mg/3 Ml Nebu) 2.5 mg IH Q4HRT PRN PRN Reason: Shortness Of Breath Aspirin (Aspirin Ec 81 Mg Tab) 162 mg PO QDAY [facility] Last Admin: 10/21/20 10:49 Dose: 162 mg Documented by: Atorvastatin Calcium (Atorvastatin 20 Mg Tab) 20 mg PO QHS [facility] Last Admin: 10/20/20 22:25 Dose: 20 mg Documented by: Duloxetine HCl (Duloxetine 30 Mg Cap) 60 mg PO QDAY [facility] Last Admin: 10/21/20 10:50 Dose: 60 mg Documented by: Famotidine (Famotidine 20 Mg Tab) 20 mg PO BID [facility] Last Admin: 10/21/20 10:50 Dose: 20 mg Documented by: Heparin Sodium (Porcine) (Heparin 10,000 Units/10 Ml Vial) 3,400 unit 40 unit/kg (3400 unit) IV Q6H PRN PRN Reason: Anti-Xa Assay < 0.1 units/ml Heparin Sodium/Sodium Chloride (Heparin/ 0.45% Nacl-25,000 Unit/500 Ml) 25,000 unit in 500 mls @ 20 mls/hr IV TITRATE [facility]; Protocol Last Admin: 10/20/20 23:33 Dose: 1,000 units/hr, 20 mls/hr Documented by: Isosorbide Mononitrate (Isosorbide Mononitrate Er 30 Mg Tab) 30 mg PO DAILY [facility] Last Admin: 10/21/20 10:50 Dose: 30 mg Documented by: Levothyroxine Sodium (Levothyroxine 125 Mcg Tab) 125 mcg PO 0600 [facility] Last Admin: 10/21/20 06:43 Dose: 125 mcg Documented by: Lisinopril (Lisinopril 20 Mg Tab) 20 mg PO QDAY [facility] Last Admin: 10/21/20 10:50 Dose: 20 mg Documented by: Metoprolol Tartrate (Metoprolol Tartrate 25 Mg Tab) 25 mg PO BID [facility] Last Admin: 10/21/20 10:50 Dose: 25 mg Documented by: Nitroglycerin (Nitroglycerin 0.4 Mg Tab Subl) 0.4 mg SL .Q5MIN PRN PRN Reason: Chest Pain Ondansetron HCl (Ondansetron 4 Mg/2 Ml Inj) 4 mg IV Q8H PRN PRN Reason: Nausea And Vomiting Last Admin: 10/20/20 15:03 Dose: 4 mg Documented by: Sodium Chloride (Sodium Chloride 0.9% 10 Ml Flush Syringe) 10 ml IV BID [facility] Last Admin: 10/21/20 10:51 Dose: 10 ml Documented by: Sodium Chloride (Sodium Chloride 0.9% 10 Ml Flush Syringe) 10 ml IV PRN PRN PRN Reason: LINE FLUSH Review of Systems Cardiovascular: chest pain, shortness of breath, no orthopnea, no palpitations, no rapid/irregular heart beat, no edema, no syncope, no lightheadedness Physical Examination Vital Signs Temp Pulse Resp BP Pulse Ox 97.6 F 79 22 143/75 96 10/20/20 11:27 10/20/20 11:27 10/20/20 11:27 10/20/20 11:27 10/20/20 11:27 General appearance: no acute distress HEENT: Positive: PERRL Neck: Positive: neck supple Cardiac: Positive: Reg Rate and Rhythm Lungs: Positive: Decreased Breath Sounds Neuro: Positive: Grossly Intact Abdomen: Positive: Soft Female genitourinary: deferred Skin: Positive: Clear Extremities: Absent: edema Results 10/21/20 04:45 10/21/20 04:45 Cardiac Enzymes 10/20/20 10/21/20 Range/Units 12:20 04:45 AST 19 20 (5-40) units/L Coagulation 10/20/20 Range/Units 12:20 PT 12.7 (12.2-14.9) Sec. INR 0.96 (0.87-1.13) APTT 26.1 (24.2-36.6) Sec. Lipids 10/20/20 Range/Units 12:20 Triglycerides 126 (2-149) mg/dL Cholesterol 294 H (50-199) mg/dL HDL Cholesterol 66 H (40-59) mg/dL Cholesterol/HDL Ratio 4.45 % CBC 10/21/20 Range/Units 04:45 WBC 4.6 (4.5-11.0) K/mm3 RBC 3.67 (3.65-5.03) M/mm3 Hgb 11.4 (10.1-14.3) gm/dl Hct 34.6 (30.3-42.9) % Plt Count 270 (140-440) K/mm3 Lymph # (Auto) 1.5 (1.2-5.4) K/mm3 [place] # (Auto) 0.4 (0.0-0.8) K/mm3 Eos # (Auto) 0.1 (0.0-0.4) K/mm3 Baso # (Auto) 0.0 (0.0-0.1) K/mm3 Comprehensive Metabolic Panel 10/20/20 10/21/20 Range/Units 12:20 04:45 Sodium 139 141 (137-145) mmol/L Potassium 5.5 H 4.2 D (3.6-5.0) mmol/L Chloride 101.6 103.3 (98-107) mmol/L Carbon Dioxide 27 28 (22-30) mmol/L BUN 11 11 (7-17) mg/dL Creatinine 0.7 0.8 (0.6-1.2) mg/dL Glucose 112 H 81 (65-100) mg/dL Calcium 9.7 9.2 (8.4-10.2) mg/dL AST 19 20 (5-40) units/L ALT < 5 L 6 L (7-56) units/L Alkaline Phosphatase 97 80 (35-129) units/L Total Protein 7.8 7.0 (6.3-8.2) g/dL Albumin 3.7 L 3.5 L (3.9-5) g/dL EKG interpretations - Telemetry EKG Rhythm: Sinus Rhythm Assessment and Plan - Patient Problems (1) Chest pain Current Visit: Yes Status: Acute Plan to address problem: Patient presents with atypical chest pain, recently underwent cardiac catheterization with no significant obstructive lesions, recommended for conservative medical management. The mild troponin elevation which is unchanged on serial measurements, is of uncertain significance in this clinical setting. We will proceed with a Lexiscan thallium stress test for further assessment of her coronary artery disease. The patient is again reminded of the benefits of risk factor modification including smoking cessation.
--- NOTE | 2020-10-21 13:16 | Cardiac Catherization Report ---
THALLIUM STRESS TEST REPORT REASON FOR STUDY: Chest pain. LEFT VENTRICLE: Left ventricular chamber size at the upper limits of normal. Perfusion study demonstrates fairly homogeneous uptake of the tracer in all segments, mild breast attenuation artifact is noted. Gated analysis is suboptimal. CONCLUSION: There is no demonstrable ischemia on thallium perfusion imaging. Clinical correlation is recommended and echocardiographic reassessment of left ventricular systolic function. JOB# [id number] CA/NTS
--- NOTE | 2020-10-21 13:29 | Discharge Summary ---
Providers - Providers Date of Admission: 10/20/20 14:25 Attending physician: LANDON SOLARES MD 10/20/20 13:54 Consult to Physician [CONS] Stat Comment: Consulting Provider: AFUA FLORES Physician Instructions: Reason For Exam: nstemi Primary care physician: WASHING MACHINE OPERATOR Hospitalization Reason for admission: Chest pain Condition: Good Hospital course: 79 YO Female with CAD S/P Stent Placement, Obesity Hypoventilation Syndrome, HTN, Hypothyroidism, Nicotine Dependence, GERD, HLD, MD, OA, COPD presents to ED for evaluation. Patient reports "I have been having pain in my chest". Patient states that she has experienced chest pain over the past 3 days with acutely worsening symptoms over the past 12 hours. Patient states that pain is 7/10, intermittent initially but has become constant, worsened with exertion, relieved with rest, associated with decreased exercise tolerance, dyspnea on exertion as well as dyspnea at rest. Patient transported to [facility] via private vehicle for further care and evaluation of the aforementioned symptoms. The patient was seen and evaluated in the emergency department. All lab and imaging studies reviewed. Patient found to have EKG findings as well as clinical lab findings consistent with non-ST elevation MD, as well as clinical symptoms consistent with diastolic congestive heart failure. Cardiology team consulted in ED. Patient admitted to telemetry and initiated on therapeutic anticoagulation. Patient denies fever, chills, palpitations, productive cough, skin rash, recent ill contacts, or known exposure to COVID-19. 10/21: Patient seen and examined today stress test is negative reemphasized to the patient importance to quit smoking. Patient verbalized understanding discussed with tractor engine mechanic no further intervention needed. Patient to follow- up outpatient. Cardiac risk modifications implemented. Atypical chest pain secondary to costochondritis CAD Diastolic CHF Type II NSTEMI GERD (gastroesophageal reflux disease) Obesity (BMI 30.0-34.9) Tobacco use disorder Disposition: TO HOME OR SELFCARE Final Discharge Diagnosis (Prints w/discharge instructions): Atypical chest pain secondary to costochondritis Time spent for discharge: 35 mins Core Measure Documentation - Palliative Care Palliative Care/ Comfort Measures: Not Applicable - Core Measures Any of the following diagnoses?: none Exam - Physical Exam Narrative exam: VITAL SIGNS: Reviewed. GENERAL: The patient appears normally developed, Vital signs as documented. HEAD: No signs of head trauma. EYES: Pupils are equal. Extraocular motions intact. EARS: Hearing grossly intact. MOUTH: Oropharynx is normal. NECK: No adenopathy, no JVD. CHEST: Chest with clear breath sounds bilaterally. No wheezes, rales, or rhonchi. CARDIAC: Regular rate and rhythm. S1 and S2, without murmurs, gallops, or rubs. VASCULAR: No Edema. Peripheral pulses normal and equal in all extremities. ABDOMEN: Soft, non tender and non distended. No rebound or guarding, and no masses palpated. Bowel Sounds normal. MUSCULOSKELETAL: Good range of motion of all major joints. Extremities without clubbing, cyanosis or edema. NEUROLOGIC EXAM: Alert and oriented x 3 No focal sensory or strength d eficits. Speech normal. Follows commands. PSYCHIATRIC: Mood normal. SKIN: detail exam as documented in skin assessment - Constitutional Vitals: Temp Pulse Resp BP Pulse Ox 98.4 F 73 18 170/86 92 10/21/20 04:15 10/21/20 10:50 10/21/20 07:57 10/21/20 10:50 10/21/20 07:57 Plan Activity: advance as tolerated Diet: low fat Special Instructions: record daily weights, record daily BP diary, smoking cessation Follow up with: SHAR AVILES MD [Primary Care Provider] - 3-5 Days AFUA FLORES MD [Staff Physician] - 7 Days
[2020-10-21 15:35] VITALS: BP 119/60
--- NOTE | 2020-10-22 11:30 | Electrocardiograph Report ---
[facility] Test Date: 2020-10-20 Test Time: 11:35:59 Pat Name: TOM ROJAS Department: Room: A480 1 Gender: F Insurance Verification Specialist: MAIRA : 1940 Requested By: ANTONIETTA FABIAN Order Number: [id number] Reading MD: Eduardo Amador Measurements Intervals [place] Rate: 68 P: -9 KS: 193 QRS: -25 QRSD: 146 T: QT: 482 QTc: 515 Interpretive Statements Sinus arrhythmia Cannot exclude atrial paced complexes Left bundle branch block No previous ECG available for comparison Electronically Signed On 10-22-2020 11:29:38 EDT by Eduardo Amador
--- NOTE | 2020-10-22 11:38 | Treadmill Report ---
[facility] Test Date: 2020-10-21 Test Time: 07:00:26 Pat Name: TOM ROJAS Department: Room: A480 1 Gender: F Securities Teller: Venus Pires : 1940 Requested By: EDUARDO FLORES Order Number: [id number] Reading MD: Eduardo Flores Interpretive Statements See dictated report Electronically Signed On 10-22-2020 11:38:28 EDT by Eduardo Flores
== END 2020-10-21 17:14 | disposition home or self-care (01) ==
LOC: ED 11:23 → INTOOBSV 14:25 → 4A 14:25
PROVIDERS: ADMIT Internal Medicine; ATTEND Internal Medicine
DX: I21.4 Non-ST elevation (NSTEMI) myocardial infarction (principal); I20.8 Other forms of angina pectoris; I11.0 Hypertensive heart disease with heart failure; I50.31 Acute diastolic (congestive) heart failure; K21.9 Gastro-esophageal reflux disease without esophagitis; E66.9 Obesity, unspecified; I25.2 Old myocardial infarction; M19.90 Unspecified osteoarthritis, unspecified site; J44.9 Chronic obstructive pulmonary disease, unspecified; F17.210 Nicotine dependence, cigarettes, uncomplicated; E78.5 Hyperlipidemia, unspecified; Z90.49 Acquired absence of other specified parts of digestive tract; Z68.34 Body mass index [BMI] 34.0-34.9, adult; Z98.890 Other specified postprocedural states; Z79.82 Long term (current) use of aspirin; Z95.1 Presence of aortocoronary bypass graft
CPT/HCPCS: 36415; 71046; 78452; 80053; 80061; 82550; 83735; 84484; 85025; 85520; 85610; 85730; 87641; 93005; 93017; 96365; 96366; 96375; 96376; 99291; 99406; A9270; A9502; G0378; J1644; J2405; J2785